=== PATIENT | female | born 1965 | race Caucasian/White ===

== ENCOUNTER 2017-08-08 15:57 | Day surgery (SDC) | payer BC ==
[~2017-08-08] VITALS: Ht 162.6 cm; Wt 125.3 kg
[2017-08-08] MEDS ORDERED: ALBUTEROL (16:23)
[2017-08-08] MEDS ORDERED: ZANTAC (16:23)
[2017-08-08] MEDS ORDERED: DEXILANT (16:23)
[2017-08-08] MEDS ORDERED: LISINOPRIL (16:23)
[2017-08-08 16:37] VITALS: Ht 162.6 cm; Wt 125.3 kg
[2017-08-08 16:56] VITALS: BP 110/69; PULSE 79; RESP 18
[2017-08-08] MEDS ORDERED: PROPOFOL 40 ML ONE (17:09)
[2017-08-08] MEDS ORDERED: LIDOCAINE 2% (SDV) 5 ML INJ ONE (17:09)
--- NOTE | 2017-08-08 17:39 | OPPN ---
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
[2017-08-08 18:00] VITALS: BP 113/55; PULSE 79; RESP 24
--- NOTE | 2017-08-08 20:19 | GILP ---
DATE OF PROCEDURE: 08/08/2017 PROCEDURE PERFORMED: Colonoscopy and biopsy. SURGEON: Terrell Jade MD. PREOPERATIVE DIAGNOSES: 1. Change in bowel habits. 2. Family history of colon cancer. POSTOPERATIVE DIAGNOSES: 1. Colonoscopy all the way to the cecum. 2. Small transverse colon polyp was removed using biopsy forceps. 3. Internal hemorrhoids. INDICATIONS FOR PROCEDURE: The patient is a 51-year-old female patient who noticed change in the bowel habits. The patient had a family history of colon cancer. The patient was scheduled for colonoscopy for further evaluation. The patient had a colonoscopy done by another elevator worker and the exam was suboptimal because of stool in the right colon. The procedure and possible complications were well explained to the patient. She understood and consented to the procedure. DESCRIPTION OF PROCEDURE: Under the influence of anesthesia, the colonoscope was carefully introduced in the rectum. Under direct vision, it was advanced all the way to the cecum. FINDINGS: The patient had a small transverse colon polyp and it was removed using biopsy forceps. She was noted to have internal hemorrhoids. She tolerated the procedure very well. There was no complication from the procedure. At the end of procedure, she was awake with stable vital signs and she was discharged home to the care of her family. IMPRESSION: 1. Colonoscopy all the way to the cecum. 2. Small transverse colon polyp was removed using biopsy forceps. 3. Internal hemorrhoids. PLAN: 1. Await histopathology report. 2. Next screening colonoscopy in 5 years. 3. Advised high-fiber diet. Dictated By: MD ROCIO Leblanc/nneka/nelson /Document#: [id number]
--- NOTE | 2017-08-10 12:56 | CONS ---
PATIENT NAME: GINGER ERNANDEZ DATE OF ADMISSION: DATE OF CONSULTATION: 07/14/2017 HISTORY OF PRESENT ILLNESS: Ms. Ginger Ernandez is a 51-year- old female patient, who was been referred to me for further evaluation of gastroesophageal reflux disease associated with vomiting. Patient also has got some difficulty in swallowing. Patient underwent upper endoscopic examination done by another second floor operator, and she was noted to have gastroesophageal reflux disease. She has been scheduled to undergo barium swallow for further evaluation of dysphagia. Patient also complains of change in the bowel habit with a feeling of inadequate evacuation after a bowel movement. Patient underwent colonoscopy done by another second floor operator, and she had residual stool in the right colon making the exam incomplete and inadequate. There is no past history of colon neoplasm. She denies any history of rectal bleeding. Her appetite has been somewhat poor, but there is no history of significant weight loss. She is not taking any nonsteroidal antiinflammatory agent. She is status post cholecystectomy. She does not have any fever, chills or jaundice. Patient was noted to have had fatty liver. She is not hypertensive or diabetic. She does not have any heart disease. She has history of bronchial asthma. There is no history of kidney disease. She is a nonsmoker. She does not abuse alcohol. FAMILY HISTORY: Patient has family history of colon cancer. ALLERGIES: THERE IS NO HISTORY OF SIGNIFICANT DRUG ALLERGY. MEDICATION: 1. Dexilant. 2. Zantac. 3. Albuterol inhaler. PHYSICAL EXAMINATION: GENERAL: She is 5 feet 4 inches tall, and she weighs 240 pounds. HEART: Normal heart sounds. LUNGS: Clear. ABDOMEN: Soft without distention. Pannus has obese abdominal wall. Liver and spleen are not palpable. No masses. Normal bowel sounds are heard. CENTRAL NERVOUS SYSTEM: No focal neurological deficit. IMPRESSION: 1. Gastroesophageal reflux disease with vomiting and dysphagia. 2. Patient underwent endoscopic examination done by another second floor operator, and no stricture was identified. 3. Patient has been scheduled to undergo barium swallow for further evaluation of dysphagia. 4. Change in the bowel habit with a feeling of incomplete evacuation after the bowel movement. 5. Patient underwent colonoscopy, and exam was inadequate and incomplete because of residual stool in the right colon. 6. Family history of colon cancer. 7. Bronchial asthma. 8. Obesity. 9. Status post cholecystectomy. PLAN: 1. Patient was advised to have dinner at least 4 hours before she goes to bed. 2. Dexilant 60 mg p.o. 1 hour before dinner. 3. Zantac 300 mg p.o. at bedtime. 4. Patient was advised to lose weight. 5. Colonoscopy with better preparation. 6. Because of the obesity with a short, thick neck, she needs monitored anesthesia care for the procedure. 7. The procedure and possible complications were well explained to the patient. She understands and consents to the procedure. Dictated By: MD ROCIO Leblanc/nneka/melody /Document#: [id number]
== END 2017-08-08 17:49 | disposition home or self-care (01) ==
LOC: GIL 15:57
PROVIDERS: ATTEND Internal Medicine Gastroenterology
DX: R19.4 Change in bowel habit (principal); D12.3 Benign neoplasm of transverse colon; K64.8 Other hemorrhoids; Z80.0 Family history of malignant neoplasm of digestive organs; J45.909 Unspecified asthma, uncomplicated; E66.01 Morbid (severe) obesity due to excess calories; Z68.42 Body mass index [BMI] 45.0-49.9, adult
CPT/HCPCS: 84703